=== PATIENT | female | born 1960 | race Caucasian/White ===

== ENCOUNTER 2016-09-03 | Outpatient (CLI) | payer OTHER | END 2016-09-03 10:41 | disposition critical access hospital (66) | CPT/HCPCS: A0425; A0427 ==

== ENCOUNTER 2016-09-03 11:08 | Emergency (ER) | payer OTHER ==
[2016-09-03] MEDS ORDERED: HYDROmorphone 1 MG/ML SYRINGE IVP STA ×2 (11:25→12:48)
[2016-09-03] MEDS ORDERED: HYDROmorphone 1 MG/ML SYRINGE ONE ×2 (11:42→12:53)
[2016-09-03] MEDS ORDERED: KETOROLAC 60 MG/2 ML VIAL IVP STA (12:48)
[2016-09-03] MEDS ORDERED: KETOROLAC 30 MG/ML VIAL ONE (12:53)
[2016-09-03] MEDS ORDERED: ONDANSETRON ODT 4 MG TABLET ONE (14:05)
[2016-09-03] MEDS ORDERED: ONDANSETRON ODT 4 MG TABLET TL STA (14:43)
== END 2016-09-03 14:10 | disposition home or self-care (01) ==
DX: S82.812A Torus fracture of upper end of left fibula, initial encounter for closed fracture (principal); S93.492A Sprain of other ligament of left ankle, initial encounter; W00.0XXA Fall on same level due to ice and snow, initial encounter
CPT/HCPCS: 73590; 73610; 96374; 96375; 96376; 99284; J1170; Q0162

== ENCOUNTER 2017-02-21 08:33 | Day surgery (SDC) | payer OTHER ==
[2017-02-21] MEDS ORDERED: LACTATED RINGERS 1,000 ML IV ONE (09:13)
[2017-02-21] MEDS ORDERED: fentaNYL 100 MCG/2 ML VIAL IVP ONE (10:39)
[2017-02-21] MEDS ORDERED: ONDANSETRON 4 MG/2 ML VIAL IVP ONE (10:39)
[2017-02-21] MEDS ORDERED: MIDAZOLAM 2 MG/2 ML VIAL IVP ONE (10:39)
[2017-02-21 11:45] VITALS: BP 132/73
== END 2017-02-21 08:34 | disposition home or self-care (01) ==
LOC: SDS 08:33
PROVIDERS: ATTEND Surgery
PROC: 0DJD8ZZ Inspection of Lower Intestinal Tract, Via Natural or Artificial Opening Endoscopic (ICD-10-PCS; principal; 2017-02-21 09:45)
DX: Z12.11 Encounter for screening for malignant neoplasm of colon (principal); K57.30 Diverticulosis of large intestine without perforation or abscess without bleeding; K64.8 Other hemorrhoids; E03.9 Hypothyroidism, unspecified; E66.9 Obesity, unspecified; J45.909 Unspecified asthma, uncomplicated; Z88.2 Allergy status to sulfonamides; Z88.5 Allergy status to narcotic agent; Z88.0 Allergy status to penicillin; Z80.0 Family history of malignant neoplasm of digestive organs; Z68.41 Body mass index [BMI] 40.0-44.9, adult
CPT/HCPCS: 45378; J7120

== ENCOUNTER 2017-03-18 13:33 | Outpatient (CLI) | payer OTHER ==
--- NOTE | 2017-03-21 14:27 | Mammography Report ---
DIGITAL SCREENING MAMMOGRAM: 03/18/2017 CLINICAL INDICATION: A 56-year-old for screening. COMPARISON: 03/2016, 01/2015, 10/2013, 09/2012, 09/2011 TECHNIQUE: Routine CC and MLO projections were obtained of the breasts. FINDINGS: Parenchymal tissue within the breasts is predominantly fatty replaced. There are no domina nt masses, suspicious microcalcifications, or secondary signs of malignancy. In comparison to the pre vious studies, there are no significant changes. IMPRESSION: NO MAMMOGRAPHIC EVIDENCE OF MALIGNANCY. NO SIGNIFICANT INTERVAL CHANGES. RECOMMENDATION: Screening mammography is recommended annually. BIRADS category 1 - negative. STANDARD QUALIFYING STATEMENTS 1. This examination was reviewed with the aid of Computed-Aided Detection (CAD). 2. A negative or benign imaging report should not delay biopsy if clinically suspicious findings are present. Consider surgical consultation if warranted. More than 5% of cancers are not identified by i maging. 3. Dense breasts may obscure an underlying neoplasm. JOB #: [id number] EXT JOB #:[id number]
== END 2017-03-18 13:34 | disposition home or self-care (01) ==
LOC: DI.N 13:33
PROVIDERS: ATTEND Family Medicine
DX: Z12.31 Encounter for screening mammogram for malignant neoplasm of breast (principal)
CPT/HCPCS: 77067

== ENCOUNTER 2017-08-25 08:00 | Outpatient (CLI) | payer OTHER ==
[2017-08-25 12:29] LABS: BASOPHILS % (AUTO) 0.5 %; HGB - HEMOGLOBIN 12.9 g/dL (12.0-16.0); LYMPHOCYTES # (AUTO) 1.5 10^3/uL (1.5-3.5); LYMPHOCYTES % (AUTO) 36.9 %; MEAN CORPUSCULAR HEMOGLOBIN 29.7 pg (27.0-31.0); MEAN CORPUSCULAR HGB CONC 33.8 g/dL (32.0-36.0); MEAN CORPUSCULAR VOLUME 87.7 fL (81.0-99.0); MEAN PLATELET VOLUME 6.6 fL (7.9-10.8); MONOCYTES # (AUTO) 0.4 10^3/uL (0.0-1.0); MONOCYTES % (AUTO) 9.9 %; NEUTROPHILS # (AUTO) 2.1 10^3/uL (1.5-6.6); NEUTROPHILS % (AUTO) 52.7 %; PLT - PLATELET COUNT 278 10^3/uL (130-450); RED BLOOD COUNT 4.34 10^6/uL (4.20-5.40); RED CELL DISTRIBUTION WIDTH 12.3 % (12.0-15.0); WHITE BLOOD COUNT 3.9 x10^3/uL (4.8-10.8)
[2017-08-25 13:33] LABS: ALBUMIN/GLOBULIN RATIO 2.2 (1.0-2.2); ALKALINE PHOSPHATASE 55 IU/L (42-121); ALT ALANINE AMINOTRANSFERASE 30 IU/L (10-60); AST ASPARTATE AMINOTRANSFERASE 26 IU/L (10-42); BILIRUBIN,TOTAL 0.7 mg/dL (0.2-1.0); BUN - BLOOD UREA NITROGEN 19 mg/dL (6-20); CALCIUM 9.4 mg/dL (8.5-10.3); CARBON DIOXIDE - CO2 27 mmol/L (21-32); CHLORIDE 102 mmol/L (101-111); CHOL/HDL RATIO 5.2 (<4.4); CHOLESTEROL 214 mg/dL; CREATININE 1.2 mg/dL (0.4-1.0); GFR - MDRD 46 (>89); GLUCOSE 97 mg/dL (70-100); HDL CHOLESTEROL 41 mg/dL; LDL CHOLESTEROL,CALCULATED 145 mg/dL; LDL/HDL RATIO 3.5 (<4.4); SODIUM 139 mmol/L (135-145); TOTAL PROTEIN 5.8 g/dL (6.7-8.2); VLDL CHOLESTEROL 28 mg/dL
== END 2017-08-25 08:01 | disposition home or self-care (01) ==
LOC: LAB.WCP 08:00
PROVIDERS: ATTEND Family Medicine
DX: E78.5 Hyperlipidemia, unspecified (principal); N95.1 Menopausal and female climacteric states; G43.909 Migraine, unspecified, not intractable, without status migrainosus; S82.832S Other fracture of upper and lower end of left fibula, sequela; E03.9 Hypothyroidism, unspecified; J45.909 Unspecified asthma, uncomplicated
CPT/HCPCS: 36415; 80050; 80061; 83721

== ENCOUNTER 2018-03-02 10:20 | Outpatient (CLI) | payer OTHER ==
[2018-03-02 13:17] LABS: BASOPHILS % (AUTO) 0.4 %; EOSINOPHILS % (AUTO) 0.1 %; HGB - HEMOGLOBIN 13.2 g/dL (12.0-16.0); LYMPHOCYTES # (AUTO) 1.4 10^3/uL (1.5-3.5); LYMPHOCYTES % (AUTO) 29.6 %; MEAN CORPUSCULAR HEMOGLOBIN 29.2 pg (27.0-31.0); MEAN CORPUSCULAR HGB CONC 33.9 g/dL (32.0-36.0); MEAN CORPUSCULAR VOLUME 86.2 fL (81.0-99.0); MEAN PLATELET VOLUME 6.8 fL (7.9-10.8); MONOCYTES # (AUTO) 0.5 10^3/uL (0.0-1.0); MONOCYTES % (AUTO) 10.3 %; NEUTROPHILS # (AUTO) 2.8 10^3/uL (1.5-6.6); NEUTROPHILS % (AUTO) 59.6 %; PLT - PLATELET COUNT 291 10^3/uL (130-450); RED BLOOD COUNT 4.53 10^6/uL (4.20-5.40); RED CELL DISTRIBUTION WIDTH 12.5 % (12.0-15.0); WHITE BLOOD COUNT 4.6 x10^3/uL (4.8-10.8)
[2018-03-02 13:53] LABS: ALBUMIN 3.8 g/dL (3.2-5.5); ALBUMIN/GLOBULIN RATIO 1.3 (1.0-2.2); CALCIUM 9.5 mg/dL (8.5-10.3); TOTAL PROTEIN 6.7 g/dL (6.7-8.2)
== END 2018-03-02 10:21 | disposition home or self-care (01) ==
LOC: LAB.WCP 10:20
PROVIDERS: ATTEND Family Medicine
DX: E78.5 Hyperlipidemia, unspecified (principal); E03.9 Hypothyroidism, unspecified; R94.4 Abnormal results of kidney function studies; D72.819 Decreased white blood cell count, unspecified
CPT/HCPCS: 36415; 80053; 85025

== ENCOUNTER 2018-04-26 12:05 | Outpatient (CLI) | payer OTHER ==
--- NOTE | 2018-04-28 16:50 | Mammography Report ---
Reason: SCREENING MAMMO Procedure Date: 04/26/2018 Accession Number: [id number] / [id number] Procedure: MGN - Screening Mammo Dig Bilat CPT Code: FULL RESULT: EXAM: Screening Mammo Dig Bilat DATE: 04/26/2018 12:23 PM CLINICAL HISTORY: 57-year-old female presents for screening mammogram. TECHNIQUE: Bilateral CC and MLO views were obtained. COMPARISON: 03/18/2017, 03/09/2016, 02/14/2015, 11/16/2013. FINDINGS: The breasts demonstrate diffuse fatty replacement bilaterally. A typically benign coarse calcification is seen in the right breast. No suspicious masses, clustered microcalcifications, or regions of architectural distortion are identified. IMPRESSION: Benign findings RECOMMENDATION: Routine annual screening unless otherwise clinically indicated. BIRADS CATEGORY 2: Benign findings STANDARD QUALIFYING STATEMENTS: 1. This examination was not reviewed with the aid of Computer-Aided Detection (CAD). 2. A negative or benign imaging report should not delay biopsy if clinically suspicious findings are present. Consider surgical consultation if warrented. More than 5% of cancers are not identified by imaging. 3. Dense breasts may obscure an underlying neoplasm. 4. This examination was reviewed without the aid of 3D breast imaging (tomosynthesis).
== END 2018-04-26 12:06 | disposition home or self-care (01) ==
LOC: DI.N 12:05
PROVIDERS: ATTEND Radiology Diagnostic Radiology
DX: Z12.31 Encounter for screening mammogram for malignant neoplasm of breast (principal)
CPT/HCPCS: 77067

== ENCOUNTER 2018-09-20 11:10 | Outpatient (CLI) | payer OTHER ==
[2018-09-20 19:56] LABS: HEMOGLOBIN A1C 0.5 g/dL; HEMOGLOBIN A1C % 5.4 % (4.6-6.2)
[2018-09-20 20:10] LABS: THYROID STIMULATING HORMONE 2.02 uIU/mL (0.34-5.60)
[2018-09-20 20:14] LABS: ALBUMIN 4.1 g/dL (3.2-5.5); ALBUMIN/GLOBULIN RATIO 1.7 (1.0-2.2); ALKALINE PHOSPHATASE 64 IU/L (42-121); ALT ALANINE AMINOTRANSFERASE 30 IU/L (10-60); AST ASPARTATE AMINOTRANSFERASE 30 IU/L (10-42); BILIRUBIN,TOTAL 0.9 mg/dL (0.2-1.0); BUN - BLOOD UREA NITROGEN 14 mg/dL (6-20); CARBON DIOXIDE - CO2 25 mmol/L (21-32); CHLORIDE 102 mmol/L (101-111); CHOL/HDL RATIO 4.9 (<4.4); CHOLESTEROL 215 mg/dL; CREATININE 0.8 mg/dL (0.4-1.0); GFR - MDRD 73 (>89); GLUCOSE 95 mg/dL (70-100); HDL CHOLESTEROL 44 mg/dL; LDL CHOLESTEROL,CALCULATED 145 mg/dL; LDL/HDL RATIO 3.3 (<4.4); SODIUM 136 mmol/L (135-145); TOTAL PROTEIN 6.5 g/dL (6.7-8.2); VLDL CHOLESTEROL 26 mg/dL
[2018-09-20 20:15] LABS: FREE T4 (FREE THYROXINE) 1.16 ng/dL (0.58-1.64)
== END 2018-09-20 11:11 | disposition home or self-care (01) ==
LOC: LAB.WCP 11:10
PROVIDERS: ATTEND Family Medicine
DX: R73.01 Impaired fasting glucose (principal); E78.5 Hyperlipidemia, unspecified
CPT/HCPCS: 36415; 80053; 80061; 83036; 83721; 84439; 84443

== ENCOUNTER 2019-02-08 12:03 | Outpatient (CLI) | payer OTHER ==
--- NOTE | 2019-02-09 09:41 | XRAY Report ---
Reason: KNEE PAIN, LEFT Procedure Date: 02/08/2019 Accession Number: [id number] / [id number] Procedure: XR - Knee 3 View LT CPT Code: FULL RESULT: EXAM: LEFT KNEE RADIOGRAPHY EXAM DATE: 02/08/2019 12:34 PM. CLINICAL HISTORY: KNEE PAIN, LEFT. COMPARISON: None. TECHNIQUE: 3 views. FINDINGS: Bones: Normal. No fractures or bone lesions. Joints: Normal. No effusion. No subluxations. Soft Tissues: Normal. No soft tissue swelling. IMPRESSION: Normal knee radiography. RADIA
== END 2019-02-08 12:04 | disposition home or self-care (01) ==
LOC: DI 12:03
PROVIDERS: ATTEND Family Medicine
DX: M25.562 Pain in left knee (principal)

== ENCOUNTER 2019-05-23 10:59 | Outpatient (CLI) | payer OTHER ==
--- NOTE | 2019-05-23 14:03 | Mammography Report ---
Reason: SCREENING MAMMO Procedure Date: 05/23/2019 Accession Number: [id number] / [id number] Procedure: MGN - Screening Mammo Dig Bilat CPT Code: FULL RESULT: EXAM: Screening Mammo Dig Bilat DATE: 05/23/2019 11:34 AM CLINICAL HISTORY: Routine screening. TECHNIQUE: (B) - Bilateral CC and MLO views were obtained. COMPARISON: 04/26/2018, 03/18/2017, 03/09/2016, 02/14/2015, 11/16/2013, 10/09/2012, and 09/21/2011 PARENCHYMAL PATTERN: (F) - The breasts demonstrate diffuse fatty replacement bilaterally. FINDINGS: No significant interval change. There are no suspicious masses, calcifications, or areas of distortion. IMPRESSION: Negative examination. BI-RADS category 1. RECOMMENDATION: (ANNUAL) - Recommend routine annual screening mammography. BI-RADS CATEGORY: (1) - Negative. STANDARD QUALIFYING STATEMENTS: 1. This examination was not reviewed with the aid of Computer-Aided Detection (CAD). 2. A negative or benign imaging report should not preclude biopsy if clinically suspicious findings are present. 3. Dense breasts may obscure an underlying neoplasm. 4. This examination was reviewed without the aid of 3D breast imaging (tomosynthesis).
== END 2019-05-23 11:00 | disposition home or self-care (01) ==
LOC: DI.N 10:59
DX: Z12.31 Encounter for screening mammogram for malignant neoplasm of breast (principal)
CPT/HCPCS: 77067

== ENCOUNTER 2019-10-10 08:00 | Outpatient (CLI) | payer OTHER ==
[2019-10-10 12:21] LABS: BASOPHILS # (AUTO) 0.1 10^3/uL (0.0-0.1); BASOPHILS % (AUTO) 0.7 %; EOSINOPHILS # (AUTO) 0.1 10^3/uL (0.0-0.7); EOSINOPHILS % (AUTO) 1.3 %; HGB - HEMOGLOBIN 13.5 g/dL (12.0-16.0); LYMPHOCYTES # (AUTO) 3.2 10^3/uL (1.5-3.5); LYMPHOCYTES % (AUTO) 43.2 %; MEAN CORPUSCULAR HEMOGLOBIN 30.9 pg (27.0-31.0); MEAN CORPUSCULAR HGB CONC 33.5 g/dL (32.0-36.0); MEAN CORPUSCULAR VOLUME 92.2 fL (81.0-99.0); MEAN PLATELET VOLUME 8.6 fL (7.9-10.8); MONOCYTES # (AUTO) 0.6 10^3/uL (0.0-1.0); MONOCYTES % (AUTO) 8.2 %; NEUTROPHILS # (AUTO) 3.4 10^3/uL (1.5-6.6); NEUTROPHILS % (AUTO) 46.1 %; PLT - PLATELET COUNT 308 10^3/uL (130-450); RED BLOOD COUNT 4.37 10^6/uL (4.20-5.40); RED CELL DISTRIBUTION WIDTH 12.3 % (12.0-15.0); WHITE BLOOD COUNT 7.4 x10^3/uL (4.8-10.8)
[2019-10-10 12:50] LABS: ALBUMIN/GLOBULIN RATIO 1.6 (1.0-2.2); ALKALINE PHOSPHATASE 46 IU/L (42-121); ALT ALANINE AMINOTRANSFERASE 36 IU/L (10-60); AST ASPARTATE AMINOTRANSFERASE 27 IU/L (10-42); BILIRUBIN,TOTAL 0.7 mg/dL (0.2-1.0); BUN - BLOOD UREA NITROGEN 14 mg/dL (6-20); CALCIUM 9.2 mg/dL (8.5-10.3); CARBON DIOXIDE - CO2 24 mmol/L (21-32); CHLORIDE 103 mmol/L (101-111); CHOL/HDL RATIO 4.5 (<4.4); CHOLESTEROL 236 mg/dL; GFR - MDRD 56 (>89); GLUCOSE 91 mg/dL (70-100); HDL CHOLESTEROL 53 mg/dL; LDL CHOLESTEROL,CALCULATED 140 mg/dL; LDL/HDL RATIO 2.6 (<4.4); SODIUM 136 mmol/L (135-145); TOTAL PROTEIN 6.5 g/dL (6.7-8.2); VLDL CHOLESTEROL 43 mg/dL
[2019-10-10 13:36] LABS: HB2 TOTAL 13.6 g/dL; HEMOGLOBIN A1C 0.5 g/dL; HEMOGLOBIN A1C % 5.5 % (4.6-6.2)
== END 2019-10-10 23:59 | disposition home or self-care (01) ==
LOC: LAB.WCP 08:00
PROVIDERS: ATTEND Family Medicine
DX: I10 Essential (primary) hypertension (principal); E78.5 Hyperlipidemia, unspecified; R73.01 Impaired fasting glucose; E03.9 Hypothyroidism, unspecified
CPT/HCPCS: 36415; 80050; 80061; 83036; 83721

== ENCOUNTER 2019-10-26 09:48 | Outpatient (CLI) | payer OTHER ==
--- NOTE | 2019-10-26 11:35 | CT Report ---
Reason: CHRONIC SINUSITIS Procedure Date: 10/26/2019 Accession Number: [id number] / [id number] Procedure: CT - Sinuses CPT Code: Final Report FULL RESULT: CT SINUS WITHOUT CONTRAST INDICATION: 59-year-old female. Symptoms of chronic sinusitis. History of nasal septal surgery. History of bilateral maxillary sinus surgery. TECHNIQUE: Helical scan with reconstruction into 1 mm axial images. In addition, 1 mm sagittal and coronal reformations have been generated. This examination was performed using a bone algorithm. Images are only available in bone windows. In accordance with CT protocol optimization, one or more of the following dose reduction techniques were utilized for this exam: automated exposure control, adjustment of mA and/or KV based on patient size, or use of iterative reconstructive technique. COMPARISON: None. FINDINGS: Right: Frontal: Well aerated and clear. Ethmoid: There is minor mucosal thickening in a few air cells. Otherwise well aerated and clear. Maxillary: There is minor mucosal thickening along the roof of the sinus. Otherwise well aerated and clear. Sphenoid: There is a small amount of frothy material, inferiorly and laterally in the anterior aspect of the sinus. Otherwise well aerated and clear. No air-fluid level is demonstrated. Drainage pathways: The frontal recess is patent. The maxillary ostium, the infundibulum and the middle meatus are widely patent. The sphenoethmoidal recess appears widely patent. Left: Frontal: Well aerated and clear. Ethmoid: There is minor mucosal thickening in a few air cells. Otherwise well aerated and clear. Maxillary: Minimal mucosal thickening inferiorly. Otherwise well aerated and clear. Sphenoid: Partially septated sinus with medial and lateral halves. There is opacification posteriorly, probably from a mucous retention cyst (see image 76 of series #6). There may be an air-fluid level in the lateral aspect of the sinus (see image 70 of series #6). No air-fluid level is seen medially. Drainage pathways: The frontal recess is patent. The maxillary ostium, the infundibulum and the middle meatus are patent. The sphenoethmoidal recess appears patent. Nasal cavity: The nasal septum is essentially midline, suggesting a probable previous septoplasty. There is mild mucosal thickening over the middle and inferior turbinates without significant associated airway compromise. Other: The middle ear cavities and the mastoid air cells appear well aerated and clear. There is deformity of the nasal bones with mild depression on the left (see image 46 of series #3), consistent with the sequela of prior trauma or prior surgery. The regional soft tissues are poorly assessed on imaging provided. IMPRESSION: 1. There is subtotal opacification of the left chamber of the sphenoid sinus. This is predominantly from a mucous retention cyst. However, there may be a small air-fluid level within the sinus (see image 70 of series #6). In the appropriate clinical setting this could represent active sphenoid sinusitis. 2. The paranasal sinuses are otherwise essentially clear. 3. No obstructing lesion is demonstrated.
== END 2019-10-26 09:49 | disposition home or self-care (01) ==
LOC: DI 09:48
PROVIDERS: ATTEND Family Medicine
DX: J32.9 Chronic sinusitis, unspecified (principal); J34.1 Cyst and mucocele of nose and nasal sinus
CPT/HCPCS: 70486

== ENCOUNTER 2020-07-11 11:20 | Outpatient (CLI) | payer OTHER ==
--- NOTE | 2020-07-14 10:20 | Mammography Report ---
BILATERAL DIGITAL SCREENING MAMMOGRAM 3D/2D: 07/11/2020 CLINICAL: Routine screening. Comparison is made to exams dated: 05/23/2019 mammogram, 04/26/2018 mammogram, 03/18/2017 mammogram - [facility], and 03/09/2016 mammogram - [facility]. There are sc attered fibroglandular elements in both breasts. No significant masses, calcifications, or other findings are seen in either breast. There has been no significant interval change. IMPRESSION: NEGATIVE There is no mammographic evidence of malignancy. A 1 year screening mammogram is recommended. This exam was interpreted at Station ID: [id number]. NOTE: For mammograms, a report in lay terms will be sent to the patient. Approximately 15% of breast malignancies will not be visualized mammographically. In the management of a palpable breast mass, a negative mammogram must not discourage biopsy of a clinically suspicious lesion. Electronically Signed By: Earl Walters M.D. ddp/penrad:07/11/2020 13:06:00 ACR BI-RADS Category 1: Negative 3341F PARENCHYMAL PATTERN: (A) - The breast(s) demonstrate(s) scattered fibroglandular densities. BI-RADS CATEGORY: (1) - 1 RECOMMENDATION: (ANNUAL) - Recommend routine annual screening mammography. [id number] 1 year screening LATERALITY: (B)
== END 2020-07-11 11:21 | disposition home or self-care (01) ==
LOC: DI.N 11:20
DX: Z12.31 Encounter for screening mammogram for malignant neoplasm of breast (principal)

== ENCOUNTER 2021-02-05 08:00 | Outpatient (CLI) | payer OTHER ==
[2021-02-05 13:13] LABS: BASOPHILS % (AUTO) 0.6 %; EOSINOPHILS # (AUTO) 0.1 10^3/uL (0.0-0.7); EOSINOPHILS % (AUTO) 1.2 %; HGB - HEMOGLOBIN 13.5 g/dL (12.0-16.0); LYMPHOCYTES # (AUTO) 1.8 10^3/uL (1.5-3.5); LYMPHOCYTES % (AUTO) 34.3 %; MEAN CORPUSCULAR HEMOGLOBIN 30.2 pg (27.0-31.0); MEAN CORPUSCULAR HGB CONC 32.1 g/dL (32.0-36.0); MEAN PLATELET VOLUME 8.5 fL (7.9-10.8); MONOCYTES # (AUTO) 0.5 10^3/uL (0.0-1.0); MONOCYTES % (AUTO) 9.1 %; NEUTROPHILS # (AUTO) 2.8 10^3/uL (1.5-6.6); NEUTROPHILS % (AUTO) 54.2 %; PLT - PLATELET COUNT 269 10^3/uL (130-450); RED BLOOD COUNT 4.47 10^6/uL (4.20-5.40); RED CELL DISTRIBUTION WIDTH 12.1 % (12.0-15.0); WHITE BLOOD COUNT 5.2 x10^3/uL (4.8-10.8)
[2021-02-05 13:27] LABS: ESTIMATED AVERAGE GLUCOSE 111 mg/dL (70-100); HEMOGLOBIN A1c% 5.5 % (4.27-6.07)
[2021-02-05 14:08] LABS: THYROID STIMULATING HORMONE 2.77 uIU/mL (0.34-5.60)
[2021-02-05 14:13] LABS: ALBUMIN 4.1 g/dL (3.2-5.5); ALBUMIN/GLOBULIN RATIO 1.8 (1.0-2.2); ALKALINE PHOSPHATASE 50 IU/L (42-121); ALT ALANINE AMINOTRANSFERASE 32 IU/L (10-60); AST ASPARTATE AMINOTRANSFERASE 22 IU/L (10-42); BILIRUBIN,TOTAL 0.6 mg/dL (0.2-1.0); BUN - BLOOD UREA NITROGEN 18 mg/dL (6-20); CALCIUM 9.4 mg/dL (8.5-10.3); CARBON DIOXIDE - CO2 27 mmol/L (21-32); CHLORIDE 101 mmol/L (101-111); CHOL/HDL RATIO 5.6 (<4.4); CHOLESTEROL 252 mg/dL; CREATININE 1.1 mg/dL (0.4-1.0); GFR - MDRD 50 (>89); GLUCOSE 97 mg/dL (70-100); HDL CHOLESTEROL 45 mg/dL; LDL CHOLESTEROL,CALCULATED 156 mg/dL; LDL/HDL RATIO 3.5 (<4.4); POTASSIUM 4.7 mmol/L (3.5-5.0); SODIUM 139 mmol/L (135-145); TOTAL PROTEIN 6.4 g/dL (6.7-8.2); TRIGLYCERIDES 255 mg/dL; VLDL CHOLESTEROL 51 mg/dL
[2021-02-05 14:21] LABS: CREATININE,URINE 127.8 mg/dL; MICROALBUM/CREATININE RATIO,UR 10.2 ug/mg (<30.0); MICROALBUMIN,URINE 1.3 mg/dL (0-300.0)
== END 2021-02-05 23:59 | disposition home or self-care (01) ==
LOC: LAB.WCP 08:00
PROVIDERS: ATTEND Internal Medicine
DX: D72.819 Decreased white blood cell count, unspecified (principal); R73.01 Impaired fasting glucose; E78.5 Hyperlipidemia, unspecified; E03.9 Hypothyroidism, unspecified
CPT/HCPCS: 36415; 80050; 80061; 82043; 82570; 83036; 83721

== ENCOUNTER 2021-02-14 12:13 | Outpatient (CLI) | payer OTHER ==
--- NOTE | 2021-02-14 17:28 | XRAY Report ---
PROCEDURE: Shoulder 3 View RT INDICATIONS: SHOULDER JOINT PAIN, RIGHT TECHNIQUE: 3 views of the shoulder were acquired. COMPARISON: None. FINDINGS: Bones: No fractures or dislocations. No suspicious bony lesions. Visualized ribs appear intact. T here is widening of the navicular space which probably reflects prior clavicular resection. No joint hypertrophy present. Soft tissues: No suspicious soft tissue calcifications. IMPRESSION: AC joint space widening probably reflecting distal clavicular resection. Reviewed by: Rajinder Cutler MD on 02/14/2021 4:26 PM [facility] Approved by: Rajinder Cutler MD on 02/14/2021 4:26 PM [facility] Station ID: [id number]
== END 2021-02-14 12:14 | disposition home or self-care (01) ==
LOC: DI.N 12:13
PROVIDERS: ATTEND Internal Medicine
DX: M25.511 Pain in right shoulder (principal)

== ENCOUNTER 2021-03-06 08:00 | Outpatient (CLI) | payer OTHER ==
[2021-03-06 17:55] LABS: CALCIUM 9.4 mg/dL (8.5-10.3); CREATININE 1.1 mg/dL (0.4-1.0); POTASSIUM 4.1 mmol/L (3.5-5.0)
== END 2021-03-06 23:59 | disposition home or self-care (01) ==
LOC: LAB.WCP 08:00
PROVIDERS: ATTEND Internal Medicine
DX: I10 Essential (primary) hypertension (principal)
CPT/HCPCS: 36415; 80048

== ENCOUNTER 2021-07-15 11:17 | Outpatient (CLI) | payer OTHER ==
--- NOTE | 2021-07-16 13:38 | Mammography Report ---
BILATERAL DIGITAL SCREENING MAMMOGRAM 3D/2D: 07/15/2021 CLINICAL: Routine screening. Comparison is made to exams dated: 07/11/2020 mammogram, 05/23/2019 mammogram, 04/26/2018 mammogram, 03/18/2017 mammogram - [facility], and 03/09/2016 mammogram - [facility]. There are scattered fibroglandular elements in both breasts. No significant masses, calcifications, or other findings are seen in either breast. There has been no significant interval change. IMPRESSION: NEGATIVE There is no mammographic evidence of malignancy. A 1 year screening mammogram is recommended. This exam was interpreted at Station ID: [id number]. NOTE: For mammograms, a report in lay terms will be sent to the patient. Approximately 15% of breast malignancies will not be visualized mammographically. In the management of a palpable breast mass, a negative mammogram must not discourage biopsy of a clinically suspicious lesion. Electronically Signed By: Anibal Corey M.D., jr/waleska:07/15/2021 13:02:44 ACR BI-RADS Category 1: Negative 3341F PARENCHYMAL PATTERN: (A) - The breast(s) demonstrate(s) scattered fibroglandular densities. BI-RADS CATEGORY: (1) - 1 RECOMMENDATION: (ANNUAL) - Recommend routine annual screening mammography. [id number] 1 year screening LATERALITY: (B)
== END 2021-07-15 11:18 | disposition home or self-care (01) ==
LOC: DI 11:17
DX: Z12.31 Encounter for screening mammogram for malignant neoplasm of breast (principal)

== ENCOUNTER 2021-09-01 11:20 | Outpatient (CLI) | payer OTHER ==
[2021-09-01 19:52] LABS: CREATININE,URINE 169.1 mg/dL; MICROALBUM/CREATININE RATIO,UR 6.5 ug/mg (<30.0); MICROALBUMIN,URINE 1.1 mg/dL (0-300.0)
== END 2021-09-01 11:21 | disposition home or self-care (01) ==
LOC: LAB.N 11:20
PROVIDERS: ATTEND Internal Medicine
DX: R73.01 Impaired fasting glucose (principal)
CPT/HCPCS: 82043; 82570

== ENCOUNTER 2021-09-16 11:21 | Outpatient (CLI) | payer OTHER ==
[2021-09-16 17:47] LABS: BASOPHILS # (AUTO) 0.1 10^3/uL (0.0-0.1); BASOPHILS % (AUTO) 0.9 %; EOSINOPHILS # (AUTO) 0.1 10^3/uL (0.0-0.7); EOSINOPHILS % (AUTO) 2.2 %; HCT - HEMATOCRIT 42.2 % (37.0-47.0); HGB - HEMOGLOBIN 13.6 g/dL (12.0-16.0); LYMPHOCYTES # (AUTO) 1.8 10^3/uL (1.5-3.5); LYMPHOCYTES % (AUTO) 32.5 %; MEAN CORPUSCULAR HEMOGLOBIN 30.2 pg (27.0-31.0); MEAN CORPUSCULAR HGB CONC 32.2 g/dL (32.0-36.0); MEAN CORPUSCULAR VOLUME 93.6 fL (81.0-99.0); MEAN PLATELET VOLUME 8.5 fL (7.9-10.8); MONOCYTES # (AUTO) 0.5 10^3/uL (0.0-1.0); MONOCYTES % (AUTO) 9.6 %; NEUTROPHILS % (AUTO) 54.6 %; PLT - PLATELET COUNT 303 10^3/uL (130-450); RED BLOOD COUNT 4.51 10^6/uL (4.20-5.40); WHITE BLOOD COUNT 5.4 x10^3/uL (4.8-10.8)
[2021-09-16 18:12] LABS: ALBUMIN 4.5 g/dL (3.2-5.5); ALBUMIN/GLOBULIN RATIO 1.9 (1.0-2.2); ALKALINE PHOSPHATASE 53 IU/L (42-121); ALT ALANINE AMINOTRANSFERASE 32 IU/L (10-60); AST ASPARTATE AMINOTRANSFERASE 26 IU/L (10-42); BILIRUBIN,TOTAL 0.9 mg/dL (0.2-1.0); BUN - BLOOD UREA NITROGEN 12 mg/dL (6-20); CALCIUM 9.9 mg/dL (8.5-10.3); CARBON DIOXIDE - CO2 28 mmol/L (21-32); CHLORIDE 101 mmol/L (101-111); CHOL/HDL RATIO 2.7 (<4.4); CHOLESTEROL 150 mg/dL; CREATININE 1.3 mg/dL (0.4-1.0); GFR - MDRD 41 (>89); GLUCOSE 109 mg/dL (70-100); HDL CHOLESTEROL 56 mg/dL; LDL CHOLESTEROL,CALCULATED 69 mg/dL; LDL/HDL RATIO 1.2 (<4.4); POTASSIUM 4.8 mmol/L (3.5-5.0); SODIUM 140 mmol/L (135-145); TOTAL PROTEIN 6.9 g/dL (6.7-8.2); TRIGLYCERIDES 126 mg/dL; VLDL CHOLESTEROL 25 mg/dL
[2021-09-16 18:17] LABS: THYROID STIMULATING HORMONE 3.53 uIU/mL (0.34-5.60)
[2021-09-16 20:23] LABS: ESTIMATED AVERAGE GLUCOSE 114 mg/dL (70-100); HEMOGLOBIN A1c% 5.6 % (4.27-6.07)
== END 2021-09-16 11:22 | disposition home or self-care (01) ==
LOC: LAB.N 11:21
PROVIDERS: ATTEND Internal Medicine
DX: I10 Essential (primary) hypertension (principal); E78.5 Hyperlipidemia, unspecified; R73.01 Impaired fasting glucose; E03.9 Hypothyroidism, unspecified
CPT/HCPCS: 36415; 80050; 80061; 82043; 82570; 83036; 83721

== ENCOUNTER 2021-09-16 11:28 | Outpatient (CLI) | payer OTHER ==
--- NOTE | 2021-09-16 12:22 | XRAY Report ---
PROCEDURE: Elbow 3 View RT INDICATIONS: R ELBOW PX TECHNIQUE: 3 views of the elbow were acquired. COMPARISON: None. FINDINGS: BONES/JOINT: No acute, displaced fracture or dislocation. No appreciable joint effusion. Productive c hange of the medial epicondyle and coronoid process. 5.8 mm lucency in the proximal radius, which may reflect a nonossifying fibroma. SOFT TISSUES: No focal abnormality. IMPRESSION: 1.No acute osseous abnormality of the elbow. Reviewed by: Sean Mora MD on 09/16/2021 12:20 PM PST Approved by: Sean Mora MD on 09/16/2021 12:20 PM PST Station ID: [id number]
== END 2021-09-16 11:29 | disposition home or self-care (01) ==
LOC: DI.N 11:28
PROVIDERS: ATTEND Internal Medicine
DX: M25.521 Pain in right elbow (principal); I10 Essential (primary) hypertension; E78.5 Hyperlipidemia, unspecified; R73.01 Impaired fasting glucose; E03.9 Hypothyroidism, unspecified
CPT/HCPCS: 36415; 80050; 80061; 82043; 82570; 83036; 83721

== ENCOUNTER 2022-04-02 09:14 | Outpatient (CLI) | payer OTHER ==
[2022-04-02 09:39] LABS: BASOPHILS % (AUTO) 0.6 %; EOSINOPHILS # (AUTO) 0.1 10^3/uL (0.0-0.7); EOSINOPHILS % (AUTO) 2.9 %; HCT - HEMATOCRIT 38.2 % (37.0-47.0); HGB - HEMOGLOBIN 13.2 g/dL (12.0-16.0); LYMPHOCYTES # (AUTO) 1.4 10^3/uL (1.5-3.5); LYMPHOCYTES % (AUTO) 29.6 %; MEAN CORPUSCULAR HEMOGLOBIN 30.5 pg (27.0-31.0); MEAN CORPUSCULAR HGB CONC 34.6 g/dL (32.0-36.0); MEAN CORPUSCULAR VOLUME 88.2 fL (81.0-99.0); MEAN PLATELET VOLUME 8.2 fL (7.9-10.8); MONOCYTES # (AUTO) 0.5 10^3/uL (0.0-1.0); MONOCYTES % (AUTO) 10.1 %; NEUTROPHILS # (AUTO) 2.7 10^3/uL (1.5-6.6); NEUTROPHILS % (AUTO) 56.6 %; PLT - PLATELET COUNT 241 10^3/uL (130-450); RED BLOOD COUNT 4.33 10^6/uL (4.20-5.40); RED CELL DISTRIBUTION WIDTH 11.9 % (12.0-15.0); WHITE BLOOD COUNT 4.8 x10^3/uL (4.8-10.8)
[2022-04-02 09:57] LABS: ALBUMIN/GLOBULIN RATIO 1.6 (1.0-2.2); ALKALINE PHOSPHATASE 57 IU/L (42-121); ALT ALANINE AMINOTRANSFERASE 22 IU/L (10-60); AST ASPARTATE AMINOTRANSFERASE 22 IU/L (10-42); BILIRUBIN,TOTAL 0.6 mg/dL (0.2-1.0); BUN - BLOOD UREA NITROGEN 15 mg/dL (6-20); CALCIUM 9.3 mg/dL (8.5-10.3); CARBON DIOXIDE - CO2 24 mmol/L (21-32); CHLORIDE 103 mmol/L (101-111); CHOL/HDL RATIO 2.9 (<4.4); CHOLESTEROL 126 mg/dL; CREATININE 0.9 mg/dL (0.4-1.0); GFR - MDRD 63 (>89); GLUCOSE 104 mg/dL (70-100); HDL CHOLESTEROL 44 mg/dL; LDL CHOLESTEROL,CALCULATED 51 mg/dL; LDL/HDL RATIO 1.2 (<4.4); POTASSIUM 3.8 mmol/L (3.5-5.0); SODIUM 135 mmol/L (135-145); TOTAL PROTEIN 6.5 g/dL (6.7-8.2); TRIGLYCERIDES 153 mg/dL; VLDL CHOLESTEROL 31 mg/dL
[2022-04-02 10:09] LABS: THYROID STIMULATING HORMONE 3.61 uIU/mL (0.34-5.60)
[2022-04-02 10:22] LABS: ESTIMATED AVERAGE GLUCOSE 120 mg/dL (70-100); HEMOGLOBIN A1c% 5.8 % (4.27-6.07)
== END 2022-04-02 09:15 | disposition home or self-care (01) ==
LOC: LAB 09:14
PROVIDERS: ATTEND Internal Medicine
DX: I10 Essential (primary) hypertension (principal); E78.5 Hyperlipidemia, unspecified; R73.01 Impaired fasting glucose; E03.9 Hypothyroidism, unspecified
CPT/HCPCS: 36415; 80050; 80061; 83036; 83721

== ENCOUNTER 2022-04-21 06:25 | Day surgery (SDC) | payer OTHER ==
[2022-04-21] MEDS ORDERED: LACTATED RINGERS 1,000 ML IV ONE ×2 (06:48→08:19)
--- NOTE | 2022-04-21 07:25 | ANESTHESIA ---
Pre-Anesthesia VS, & Labs - Diagnosis screening - Procedure colonoscopy Vital Signs: Temp Pulse Resp BP Pulse Ox O2 Flow Rate 36.4 C L 96 24 137/76 H 94 0 04/21/22 06:41 04/21/22 06:41 04/21/22 06:41 04/21/22 06:41 04/21/22 06:41 04/21/22 06:41 Height: 5 ft 7 in Weight (kg): 120.2 kg Body Mass Index: 41.5 BMI Classification: Morbidly Obese - NPO >8 hours - Is Patient ?: No Home Medications and Allergies Home Medications: Ambulatory Orders Fluticasone/Salmeterol [Advair Hfa 45-21 Mcg Inhaler] 2 puffs IH DAILY 04/12/22 Losartan Potassium [Cozaar] 100 mg PO DAILY 04/12/22 Montelukast [Singulair] 10 mg PO QPM 04/12/22 Rosuvastatin Calcium [Crestor] 10 mg PO QPM 04/12/22 methocarbamoL [Methocarbamol] 750 mg PO TID PRN 04/12/22 Amitriptyline [Elavil] 50 mg PO HS 09/03/16 Levothyroxine Sodium [Synthroid] 88 mcg PO DAILY 09/03/16 traZODone [Desyrel] 300 mg PO HS 09/03/16 Fluticasone/Salmeterol [Advair Hfa 45-21 Mcg Inhaler] 2 puffs IH DAILY 04/12/22 Losartan Potassium [Cozaar] 100 mg PO DAILY 04/12/22 Montelukast [Singulair] 10 mg PO QPM 04/12/22 Rosuvastatin Calcium [Crestor] 10 mg PO QPM 04/12/22 methocarbamoL [Methocarbamol] 750 mg PO TID PRN 04/12/22 Allergies/Adverse Reactions: Allergies Allergy/AdvReac Type Severity Reaction Status Date / Time adhesive tape Allergy Rash Verified 04/21/22 06:16 codeine Allergy Unknown Verified 04/21/22 06:16 doxycycline Allergy Unknown Verified 04/21/22 06:16 latex Allergy Rash Verified 04/21/22 06:16 Penicillins Allergy Unknown Verified 04/21/22 06:16 shellfish derived Allergy Nausea Verified 04/21/22 06:16 Sulfa (Sulfonamide Allergy Unknown Verified 04/21/22 06:16 Antibiotics) Anes History & Medical History - Anesthetic History Anesthesia Complications: reports: No previous complications Family history of Anesthesia Complications: Denies Family history of Malignant Hyperthermia: Denies - Medical History Cardiovascular: reports: Hypertension, High cholesterol, Murmur Pulmonary: reports: Asthma Gastrointestinal: reports: Colon polyps Urinary: reports: None Musculoskeletal: Endocrine/Autoimmune: reports: HyPOthyroidism Skin: reports: None - Surgical History General: reports: Colonoscopy, Other Eyes Ears Nose Throat (EENT): reports: Other Gynecologic: reports: Dilation and currettage, Hysterectomy, Oophrectomy Orthopedic: reports: Arthroscopic surgery Exam General: Alert, Oriented x3, Cooperative Dental: WNL Mouth Openin Fingerbreadth Mallampati classification: III Thyromental Distance: less than 4 cm Respiratory: Lungs clear Cardiovascular: Regular rate Plan Anesthesia Type: Total IV Consent for Procedure(s) Verified and Reviewed: Yes Code Status: Attempt Resuscitation ASA classification: 3-Severe systemic disease Is this case an emergency?: No
[2022-04-21] MEDS ORDERED: KETAMINE 500 MG/10 ML VIAL ONE (07:42)
[2022-04-21] MEDS ORDERED: PROPOFOL 500 MG/50 ML 500 MG/50 ML VIAL ONE (07:42)
[2022-04-21] MEDS ORDERED: LIDOCAINE-MPF 2% 5 ML VIAL ONE (07:42)
[2022-04-21] MEDS ORDERED: PROPOFOL 200 MG/20 ML VIAL IVP ONE (08:20)
[2022-04-21 09:35] VITALS: BP 134/66
--- NOTE | 2022-04-21 14:01 | ANESTHESIA POST OP EVALUATION ---
Anesthesia Post Eval - Post Anesthesia Eval Vitals: Last Vital Signs Temp 36 C L 04/21/22 09:00 Pulse 72 04/21/22 09:00 Resp 18 04/21/22 09:00 BP 134/66 H 04/21/22 09:00 Pulse Ox 98 04/21/22 09:00 O2 Flow Rate 0 04/21/22 06:41 CV Function Including HR & BP: Stable Pain Control: Satisfactory Nausea & Vomiting: Negative Mental Status: Baseline Respiratory Status: Airway Patent Hydration Status: Satisfactory Anesthesia Complications: None
== END 2022-04-21 06:26 | disposition home or self-care (01) ==
LOC: SDS 06:25
PROVIDERS: ATTEND Surgery
PROC: 0DBP8ZX Excision of Rectum, Via Natural or Artificial Opening Endoscopic, Diagnostic (ICD-10-PCS; 2022-04-21)
PROC: 0DBH8ZX Excision of Cecum, Via Natural or Artificial Opening Endoscopic, Diagnostic (ICD-10-PCS; 2022-04-21)
PROC: 0DBK8ZX Excision of Ascending Colon, Via Natural or Artificial Opening Endoscopic, Diagnostic (ICD-10-PCS; principal; 2022-04-21 07:30)
DX: Z12.11 Encounter for screening for malignant neoplasm of colon (principal); D12.2 Benign neoplasm of ascending colon; D12.0 Benign neoplasm of cecum; K62.1 Rectal polyp; K64.8 Other hemorrhoids; J45.909 Unspecified asthma, uncomplicated; E66.01 Morbid (severe) obesity due to excess calories; I10 Essential (primary) hypertension; Z68.41 Body mass index [BMI] 40.0-44.9, adult; Z80.0 Family history of malignant neoplasm of digestive organs
CPT/HCPCS: 45380; J7120

== ENCOUNTER 2022-07-16 11:04 | Outpatient (CLI) | payer OTHER ==
--- NOTE | 2022-07-19 11:45 | Mammography Report ---
BILATERAL DIGITAL SCREENING MAMMOGRAM 3D/2D: 07/16/2022 CLINICAL: Routine screening. Comparison is made to exams dated: 07/15/2021 mammogram, 07/11/2020 mammogram, 05/23/2019 mammogram, and 04/26/2018 mammogram - [facility]. Both breasts are almost entirely fatty (category a/<25% glandular tissue). No significant masses, calcifications, or other findings are seen in either breast. There has been no significant interval change. IMPRESSION: NEGATIVE There is no mammographic evidence of malignancy. A 1 year screening mammogram is recommended. Based on the Tyrer Cuzick model (a risk assessment model) the patients lifetime risk is 2.0% and her 10 year risk is 0.9%. According to the ACR, ACS, and NCCN guidelines, an annual breast MRI exam vern g with mammogram is recommended if the patients lifetime risk is 20% or greater. This exam was interpreted at Station ID: [id number]. NOTE: For mammograms, a report in lay terms will be sent to the patient. Approximately 15% of breast malignancies will not be visualized mammographically. In the management of a palpable breast mass, a negative mammogram must not discourage biopsy of a clinically suspicious lesion. Electronically Signed By: Anibal Corey M.D., jr/waleska:07/16/2022 12:14:43 ACR BI-RADS Category 1: Negative 3341F PARENCHYMAL PATTERN: (F) - The breast(s) demonstrate(s) diffuse fatty replacement. BI-RADS CATEGORY: (1) - 1 RECOMMENDATION: (ANNUAL) - Recommend routine annual screening mammography. [id number] 1 year screening LATERALITY: (B)
== END 2022-07-16 11:05 | disposition home or self-care (01) ==
LOC: DI 11:04
DX: Z12.31 Encounter for screening mammogram for malignant neoplasm of breast (principal)

== ENCOUNTER 2022-08-10 10:29 | Outpatient (CLI) | payer OTHER ==
--- NOTE | 2022-08-10 11:56 | XRAY Report ---
PROCEDURE: Knee 2 View RT INDICATIONS: KNEE PAIN TECHNIQUE: 2 views of the right knee(s) were acquired. COMPARISON: None. FINDINGS: Bones: No acute fracture. No dislocation. Mild arthrosis, particularly with joint space narrowing in the medial compartment. Soft tissues: No significant joint effusion. IMPRESSION: Mild arthrosis, particularly the medial compartment. If there is high concern for furthe r derangement, consider MRI evaluation. Reviewed by: Ted Zamarripa MD on 08/10/2022 11:55 AM [facility] Approved by: Ted Zamarripa MD on 08/10/2022 11:55 AM [facility] Station ID: [id number]
== END 2022-08-10 10:30 | disposition home or self-care (01) ==
LOC: DI 10:29
PROVIDERS: ATTEND Family Medicine
DX: M17.11 Unilateral primary osteoarthritis, right knee (principal)

== ENCOUNTER 2022-08-25 10:15 | Outpatient (CLI) | payer OTHER ==
[2022-08-25 10:30] LABS: BASOPHILS % (AUTO) 0.6 %; EOSINOPHILS # (AUTO) 0.2 10^3/uL (0.0-0.7); EOSINOPHILS % (AUTO) 2.6 %; HCT - HEMATOCRIT 40.8 % (37.0-47.0); HGB - HEMOGLOBIN 13.4 g/dL (12.0-16.0); LYMPHOCYTES # (AUTO) 2.2 10^3/uL (1.5-3.5); LYMPHOCYTES % (AUTO) 33.5 %; MEAN CORPUSCULAR HEMOGLOBIN 29.8 pg (27.0-31.0); MEAN CORPUSCULAR HGB CONC 32.8 g/dL (32.0-36.0); MEAN CORPUSCULAR VOLUME 90.7 fL (81.0-99.0); MEAN PLATELET VOLUME 8.1 fL (7.9-10.8); MONOCYTES # (AUTO) 0.6 10^3/uL (0.0-1.0); MONOCYTES % (AUTO) 9.3 %; NEUTROPHILS # (AUTO) 3.5 10^3/uL (1.5-6.6); NEUTROPHILS % (AUTO) 53.7 %; PLT - PLATELET COUNT 267 10^3/uL (130-450); RED CELL DISTRIBUTION WIDTH 12.1 % (12.0-15.0); WHITE BLOOD COUNT 6.5 x10^3/uL (4.8-10.8)
[2022-08-25 10:59] LABS: THYROID STIMULATING HORMONE 3.34 uIU/mL (0.34-5.60)
[2022-08-25 11:06] LABS: ALBUMIN 4.2 g/dL (3.2-5.5); ALBUMIN/GLOBULIN RATIO 1.9 (1.0-2.2); ALKALINE PHOSPHATASE 59 IU/L (42-121); ALT ALANINE AMINOTRANSFERASE 23 IU/L (10-60); AST ASPARTATE AMINOTRANSFERASE 20 IU/L (10-42); BILIRUBIN,TOTAL 1.3 mg/dL (0.2-1.0); BUN - BLOOD UREA NITROGEN 22 mg/dL (6-20); CARBON DIOXIDE - CO2 24 mmol/L (21-32); CHLORIDE 100 mmol/L (101-111); CHOLESTEROL 125 mg/dL; CREATININE 1.3 mg/dL (0.4-1.0); GFR - MDRD 41 (>89); GLUCOSE 95 mg/dL (70-100); HDL CHOLESTEROL 42 mg/dL; LDL CHOLESTEROL,CALCULATED 57 mg/dL; LDL/HDL RATIO 1.4 (<4.4); POTASSIUM 4.1 mmol/L (3.5-5.0); SODIUM 135 mmol/L (135-145); TOTAL PROTEIN 6.4 g/dL (6.7-8.2); TRIGLYCERIDES 128 mg/dL; VLDL CHOLESTEROL 26 mg/dL
[2022-08-25 11:45] LABS: ESTIMATED AVERAGE GLUCOSE 117 mg/dL (70-100); HEMOGLOBIN A1c% 5.7 % (4.27-6.07)
== END 2022-08-25 10:16 | disposition home or self-care (01) ==
LOC: LAB 10:15
PROVIDERS: ATTEND Internal Medicine
DX: I10 Essential (primary) hypertension (principal); E78.5 Hyperlipidemia, unspecified; R73.01 Impaired fasting glucose; E03.9 Hypothyroidism, unspecified
CPT/HCPCS: 36415; 80053; 80061; 83036; 83721; 84443; 85025

== ENCOUNTER 2022-12-17 10:26 | Outpatient (CLI) | payer OTHER ==
[2022-12-17 10:50] LABS: CALCIUM 9.1 mg/dL (8.5-10.3); CREATININE 1.1 mg/dL (0.4-1.0); POTASSIUM 4.2 mmol/L (3.5-5.0)
[2022-12-17 11:12] LABS: CREATININE,URINE 97.7 mg/dL; MICROALBUM/CREATININE RATIO,UR 5.1 ug/mg (<30.0); MICROALBUMIN,URINE 0.5 mg/dL (0-300.0)
== END 2022-12-17 10:27 | disposition home or self-care (01) ==
LOC: LAB 10:26
PROVIDERS: ATTEND Internal Medicine
DX: I10 Essential (primary) hypertension (principal); E55.9 Vitamin D deficiency, unspecified; R73.01 Impaired fasting glucose
CPT/HCPCS: 36415; 80048; 82043; 82306; 82570

== ENCOUNTER 2023-03-30 11:38 | Outpatient (CLI) | payer OTHER ==
--- NOTE | 2023-03-30 14:47 | XRAY Report ---
PROCEDURE: Chest 2 View X-Ray INDICATIONS: ASHTMA, W ACUTE EXACERBATION TECHNIQUE: 2 views of the chest were acquired. COMPARISON: None. FINDINGS: Surgical changes and devices: None. Lungs and pleura: No pleural effusions or pneumothorax. Mildly increased bronchovascular markings in bilateral hilar region are seen. No focal infiltrate. Mediastinum: Mediastinal contours appear normal. Heart size is normal. Bones and chest wall: No suspicious bony lesions. Overlying soft tissues appear unremarkable. IMPRESSION: Finding is suggestive of mild reactive airway disease and is consistent with patient's history of ast hma. No focal infiltrate, pleural effusion or pneumothorax. Reviewed by: Nguyễn Mckeon MD on 03/30/2023 2:45 PM PDT Approved by: Nguyễn Mckeon MD on 03/30/2023 2:45 PM PDT Station ID: [id number]
== END 2023-03-30 11:39 | disposition home or self-care (01) ==
LOC: DI 11:38
PROVIDERS: ATTEND Physician Assistant
DX: J45.901 Unspecified asthma with (acute) exacerbation (principal)

== ENCOUNTER 2023-05-12 07:57 | Outpatient (CLI) | payer OTHER ==
[2023-05-12 08:12] LABS: BASOPHILS % (AUTO) 0.4 %; EOSINOPHILS # (AUTO) 0.1 10^3/uL (0.0-0.7); EOSINOPHILS % (AUTO) 1.1 %; HCT - HEMATOCRIT 39.5 % (37.0-47.0); HGB - HEMOGLOBIN 13.1 g/dL (12.0-16.0); MEAN CORPUSCULAR HEMOGLOBIN 30.3 pg (27.0-31.0); MEAN CORPUSCULAR HGB CONC 33.2 g/dL (32.0-36.0); MEAN CORPUSCULAR VOLUME 91.2 fL (81.0-99.0); MONOCYTES # (AUTO) 0.4 10^3/uL (0.0-1.0); MONOCYTES % (AUTO) 9.2 %; NEUTROPHILS % (AUTO) 67.1 %; PLT - PLATELET COUNT 214 10^3/uL (130-450); RED BLOOD COUNT 4.33 10^6/uL (4.20-5.40); RED CELL DISTRIBUTION WIDTH 11.3 % (12.0-15.0); WHITE BLOOD COUNT 4.5 x10^3/uL (4.8-10.8)
[2023-05-12 08:26] LABS: ALBUMIN 4.3 g/dL (3.2-5.5); ALKALINE PHOSPHATASE 72 IU/L (42-121); ALT ALANINE AMINOTRANSFERASE 21 IU/L (10-60); AST ASPARTATE AMINOTRANSFERASE 19 IU/L (10-42); BILIRUBIN,TOTAL 0.6 mg/dL (0.2-1.0); BUN - BLOOD UREA NITROGEN 16 mg/dL (6-20); CALCIUM 9.4 mg/dL (8.5-10.3); CARBON DIOXIDE - CO2 26 mmol/L (21-32); CHLORIDE 105 mmol/L (101-111); CHOL/HDL RATIO 2.9 (<4.4); CHOLESTEROL 125 mg/dL; CREATININE 1.1 mg/dL (0.6-1.3); GFR - MDRD 50 (>89); GLUCOSE 108 mg/dL (74-104); HDL CHOLESTEROL 43 mg/dL; LDL CHOLESTEROL,CALCULATED 46 mg/dL; LDL/HDL RATIO 1.1 (<4.4); POTASSIUM 3.9 mmol/L (3.5-4.5); SODIUM 137 mmol/L (135-145); TOTAL PROTEIN 6.4 g/dL (6.4-8.9); TRIGLYCERIDES 182 mg/dL (48-352); VLDL CHOLESTEROL 36 mg/dL
[2023-05-12 08:39] LABS: THYROID STIMULATING HORMONE 3.47 uIU/mL (0.34-5.60)
[2023-05-12 15:40] LABS: ESTIMATED AVERAGE GLUCOSE 108 mg/dL (70-100); HEMOGLOBIN A1c% 5.4 % (4.27-6.07)
== END 2023-05-12 07:58 | disposition home or self-care (01) ==
LOC: LAB 07:57
PROVIDERS: ATTEND Internal Medicine
DX: I10 Essential (primary) hypertension (principal); E78.5 Hyperlipidemia, unspecified; E55.9 Vitamin D deficiency, unspecified; R73.01 Impaired fasting glucose
CPT/HCPCS: 36415; 80053; 80061; 82306; 83036; 83721; 84443; 85025

== ENCOUNTER 2023-07-26 10:00 | Outpatient (CLI) | payer MEDICARE, OTHER ==
--- NOTE | 2023-07-26 13:25 | XRAY Report ---
PROCEDURE: Chest 2V INDICATIONS: ASTHMA WITH ACUTE EXACERBATION TECHNIQUE: 2 views of the chest were acquired. COMPARISON: Chest x-ray 03/30/2023. FINDINGS: Surgical changes and devices: None. Lungs and pleura: No pleural effusions or pneumothorax. Lungs are clear. Mediastinum: Mediastinal contours appear normal. Heart size is normal. Bones and chest wall: No suspicious bony lesions. Overlying soft tissues appear unremarkable. IMPRESSION: No acute cardiopulmonary process. Reviewed by: Garrick Pelaez MD on 07/26/2023 1:24 PM PST Approved by: Garrick Pelaez MD on 07/26/2023 1:24 PM PST Station ID: [id number]
== END 2023-07-26 10:15 | disposition home or self-care (01) ==
LOC: DI.N 10:00
PROVIDERS: ATTEND Family Medicine
DX: J45.901 Unspecified asthma with (acute) exacerbation (principal)

== ENCOUNTER 2023-08-04 08:00 | Outpatient (CLI) | payer MEDICARE, OTHER ==
[2023-08-04 19:33] LABS: INFLUENZA A- RESP PCR PANEL NOT DETECTED; INFLUENZA B - RESP PCR PANEL NOT DETECTED; RSV- RESP PCR PANEL DETECTED; SARS-CoV-2 -RESP PCR PANEL NOT DETECTED
== END 2023-08-04 23:59 | disposition home or self-care (01) ==
LOC: LAB.WCP 08:00
PROVIDERS: ATTEND Physician Assistant
DX: R05.1 Acute cough (principal)
CPT/HCPCS: 87637

== ENCOUNTER 2023-09-07 10:41 | Outpatient (CLI) | payer MEDICARE, OTHER ==
[2023-09-07] MEDS: ALBUTEROL 1 PUFF INH STA (12:09)
== END 2023-09-07 10:42 | disposition home or self-care (01) ==
LOC: RT 10:41
PROVIDERS: ATTEND Family Medicine
DX: J45.901 Unspecified asthma with (acute) exacerbation (principal)
CPT/HCPCS: 94060; 94729

== ENCOUNTER 2023-09-07 12:53 | Outpatient (CLI) | payer MEDICARE, OTHER ==
--- NOTE | 2023-09-08 09:26 | Mammography Report ---
BILATERAL DIGITAL SCREENING MAMMOGRAM 3D/2D: 09/07/2023 Comparison is made to exams dated: 07/16/2022 mammogram, 07/15/2021 mammogram, 07/11/2020 mammogram, 05/23/2019 mammogram, 04/26/2018 mammogram, and 03/18/2017 mammogram - [facility]. Both breasts are almost entirely fatty (category a/<25% glandular tissue). No significant masses, calcifications, or other findings are seen in either breast. There has been no significant interval change. IMPRESSION: NEGATIVE There is no mammographic evidence of malignancy. A 1 year screening mammogram is recommended. Based on the Tyrer Cuzick model (a risk assessment model) the patient's lifetime risk is 1.9% and her 10 year risk is 0.9%. According to the ACR, ACS, and NCCN guidelines, an annual breast MRI exam vern g with mammogram is recommended if the patient's lifetime risk is 20% or greater. This exam was interpreted at Station ID: [id number]. NOTE: For mammograms, a report in lay terms will be sent to the patient. Approximately 15% of breast malignancies will not be visualized mammographically. In the management of a palpable breast mass, a negative mammogram must not discourage biopsy of a clinically suspicious lesion. Electronically Signed By: Isabel alvarez/waleska:09/07/2023 14:06:57 letter sent: No_Letter ACR BI-RADS Category 1: Negative 3341F PARENCHYMAL PATTERN: (F) - The breast(s) demonstrate(s) diffuse fatty replacement. BI-RADS CATEGORY: (1) - 1 Mammogram [id number] 1 year screening LATERALITY: (B)
== END 2023-09-07 12:54 | disposition home or self-care (01) ==
LOC: DI 12:53
DX: Z12.31 Encounter for screening mammogram for malignant neoplasm of breast (principal)

== ENCOUNTER 2023-10-13 14:21 | Outpatient (CLI) | payer MEDICARE, OTHER ==
--- NOTE | 2023-10-13 15:11 | Sleep Patient Instructions ---
Sleep Center Visit Summary - Patient Visit Information Reason for Visit: Initial consult for evaluation of sleep disordered breathing and other sleep issues. - Patient Instructions Instructions Attached: Sleep Study, Sleep Study Home Monitor Additional Instructions: You will be completing a sleep study, either an in-lab polysomnography (PSG) or home sleep study (HST). You will follow-up in the sleep care office after the sleep study is completed to hear the results and talk about therapy, if needed. You will be called by our office staff to schedule this appointment, but you may contact us with any questions. - Clinic Information Contact: [facility] [address] [place] [id number] [email or web address] T: [phone]
--- NOTE | 2023-10-13 15:17 | SLEEP CARE CONSULTATION ---
Information from patient questionnaire entered by Lexie Marks. I have reviewed and concur with the information entered by Lexie Marks. This document represents the service I personally performed and the decisions made by me, Gladys Tate ARNP. History of Present Illness Service Date and Time: 10/13/2023 1421 Reason for Visit: New patient Accompanied by: Spouse (Emmanuel) Chief Complaint: reports: Snoring Date of Onset: 7YRS Usual bedtime: 9-10PM Time it takes to fall asleep: VARIES Snores at night: Yes Observed to quit breathing while asleep: No Sleeps alone due to snoring: No Number of times waking at night: 1-2 Reasons for waking at night: reports: Snoring, Bathroom, Other (CONGESTION SOMETIMES TOO HOT). denies: Choking, Gasping for air Toss, Turn, or Twitch while sleeping: Yes Recalls having dreams: Yes Usually gets out of bed at: 930-1030AM Feels refreshed in the morning: Yes Morning headache: No Sleepy or fatigued during the day: No Ever fallen asleep while driving: No Takes day naps: No Dreams during day naps: Yes Prior sleep studies: No Additional HPI information: I had the pleasure of seeing ALIN WOOTEN today regarding the possibility of her having a sleep disorder. Her current complaint is snoring. She is accompanied with her who says she snores loudly. He uses ear plugs at night but does not sleep in separate room. He has never seen her stop breathing. 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 She is using sinus cones at night which is reducing her snoring and she is breathing better at night. She says about 15 years ago she had sinus surgery which did help open up to where she breathe easier and her snoring was much better after the surgery. Her ENT is having her see a specialist for possible surgical treatment of her nasal valve collapse. She says she has looked up pictures of a sleep study and would like to do a home study. She has Medicare and insurance. 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 Patient is and lives in [place]. Have you smoked in the past 12 months: No Alcohol use: Yes Alcohol amount and frequency: 4GLASSES PER MONTH Caffeine use: Yes Caffeine amount and frequency: 4 CUPS PER DAY Family History Family history of sleep disordered breathing: No Family Hx Sleep Apnea: Mother: Snoring Allergies and Home Medications Known drug allergies: Yes ( LISTED ) Drug allergies reviewed: Yes Home medication list reviewed: Yes Allergy and home medication list: Allergies adhesive tape Allergy (Verified 10/11/23 14:43) Rash codeine Allergy (Verified 10/11/23 14:43) Unknown doxycycline Allergy (Verified 10/11/23 14:43) Unknown latex Allergy (Verified 10/11/23 14:43) Rash Penicillins Allergy (Verified 10/11/23 14:43) Unknown shellfish derived Allergy (Verified 10/11/23 14:43) Nausea Sulfa (Sulfonamide Antibiotics) Allergy (Verified 10/11/23 14:43) Unknown Home Medications Medication Instructions Recorded Confirmed Last Taken Type Amitriptyline [Elavil] 50 mg PO HS 09/03/16 10/13/23 1 Day Ago History ~02/20/17 Levothyroxine Sodium [Synthroid] 88 mcg PO DAILY 09/03/16 10/13/23 1 Day Ago History ~02/20/17 traZODone [Desyrel] 300 mg PO HS 09/03/16 10/13/23 1 Day Ago History ~02/20/17 Losartan Potassium [Cozaar] 100 mg PO DAILY 04/12/22 10/13/23 Unknown History Montelukast [Singulair] 10 mg PO QPM 04/12/22 10/13/23 Unknown History Rosuvastatin Calcium [Crestor] 10 mg PO QPM 04/12/22 10/13/23 Unknown History Fluticasone/Salmeterol [Advair See Rx Instructions .ROUTE .COMPLEX 10/11/23 10/13/23 Unknown History 100-50 Diskus] Review of Systems Cardiovascular: reports: high blood pressure Respiratory: reports: other (ASTHMA). denies: shortness of breath Gastrointestinal: denies: heartburn Neurological: reports: headaches Psychiatric: denies: anxiety, depression Ear/Nose/Throat: reports: nasal congestion, sinus problems, dry mouth/throat, injury to nose. denies: tonsillectomy Endocrine: reports: thyroid disease Musculoskeletal: reports: back pain Immunologic: reports: sneezing, itching, allergies to food or environment Physical Exam Vital signs obtained and entered by: LEXIE Quintana MA Blood Pressure: 134/96 (LEFT ARM) Cuff size: long Heart Rate: 92 O2 Saturation: 96 Height: 5 ft 7 in (PER PT) Weight: 250 lb (PER PT) Body Mass Index: 39.1 BMI Classification: Obese Neck circumference: 16.5 Mouth and throat: narrow oropharynx Soft palate: long Hard palate: normal Uvula: normal Uvula visualization: 25% Mallampati Class III Tongue: enlarged in size with teeth kimbrough on lateral edges Tonsils: small Neck: normal w/o lymphadenopathy or thyromegaly Heart: regular rate and rhythm Lungs: clear bilaterally Impression and Plan 1. Suspected Obstructive Sleep Apnea-Hypopnea Syndrome, as suggested by a history of loud and irregular snoring. She has a history of hypertension. Narrow oropharynx and obesity are common predisposing factors for obstructive sleep apnea-hypopnea syndrome. I recommend proceeding to polysomnography to confirm the diagnosis and to assess severity. If the patient has significant sleep disordered breathing, a manual CPAP titration study will also be performed to find the optimal treatment pressure. I informed the patient of what the sleep studies involve and after some discussion, obtained agreement to proceed. The pathophysiology of obstructive sleep apnea-hypopnea syndrome was discussed with the patient and health risks of cardiovascular and cerebrovascular disease if not treated. Risks of drowsy driving discussed in detail and patient advised to avoid long distance driving and to picker/puller at the first sign of drowsiness. Patient agreed to plan. * Schedule polysomnography +- manual CPAP titration study and return in 1-2 weeks after the study to discuss result and initiate therapy. * Avoid long distance driving or driving when feeling sleepy. * Avoid alcohol, sedative and muscle relaxant around bedtime. * Attempt to lose weight. * Review instructions provided by trained office staff on how to prepare for the sleep study. * Return for follow-up after sleep study completed. Counseling Topics: Weight loss health impact Follow up with Sleep Care in: other (after sleep study) Plan: PSG/HST Visit Type: In Office Time Spent with Patient (minutes): 33 Provider Statement: I spent 100% of the Face to Face Visit with the patient with greater than 50% spent counseling the patient and coordination of care.
[2023-10-13 15:23] VITALS: BP 134/96; O2SAT 96
== END 2023-10-13 14:22 | disposition home or self-care (01) ==
LOC: SC 14:21
PROVIDERS: ATTEND Nurse Practitioner Family
DX: R06.83 Snoring (principal); I10 Essential (primary) hypertension
CPT/HCPCS: 99203; G0463; 99212